=== PATIENT | female | born 1970 | race Hispanic/Latino ===

== ENCOUNTER → 2022-08-28 | Day surgery (SDC) | payer OTHER ==
[~2022-08-28] MED LIST: ATORVASTATIN CA20 MG PO; B-121000 MC1 PO; FENTANYL CITRATE/PF 100MCG/2 ML INJ ONE; GLIMEPIRIDE2 MG PO; HYOSCYAMINE SULFATE 0.5 MG/ML INJ ONE; LEVOTHYROXINE75 MCG PO; LIDOCAINE HCL 2% LOCAL INJ 5 ML SDV VIAL INJ ONE; PROPOFOL IV EMULSION 10 MG/ML 20 ML VIAL ONE
[2022-08-28 15:30] VITALS: BP 136/74; PULSE 79; RESP 18; O2SAT 94
== END | disposition home or self-care (01) ==
LOC: OR 11:38
PROVIDERS: ATTEND Internal Medicine Gastroenterology
DX: K52.9 Noninfective gastroenteritis and colitis, unspecified (principal); K62.1 Rectal polyp; K57.30 Diverticulosis of large intestine without perforation or abscess without bleeding; K62.89 Other specified diseases of anus and rectum; K64.8 Other hemorrhoids; Z71.89 Other specified counseling; E11.9 Type 2 diabetes mellitus without complications; R03.0 Elevated blood-pressure reading, without diagnosis of hypertension; Z71.3 Dietary counseling and surveillance; E78.00 Pure hypercholesterolemia, unspecified; E03.9 Hypothyroidism, unspecified; F32.A Depression, unspecified; Z01.810 Encounter for preprocedural cardiovascular examination; Z79.84 Long term (current) use of oral hypoglycemic drugs; Z79.899 Other long term (current) drug therapy; Z68.32 Body mass index [BMI] 32.0-32.9, adult; Z86.16 Personal history of COVID-19; Z80.0 Family history of malignant neoplasm of digestive organs
CPT/HCPCS: 36415; 45380; 82948; 83630; 83993; 86140; 87045; 87177; 87324; 87328; 87449; 93005; J1980; J2001; J2704; 45378